=== PATIENT | male | born 2000 | race African-American/Black ===

== ENCOUNTER 2021-01-27 22:23 | Emergency (ER) | payer OTHER ==
[2021-01-27 22:33] VITALS: TEMP 98.1
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
[2021-01-28 01:08] VITALS: BP 133/77; PULSE 76; RESP 16
== END 2021-01-28 01:08 | disposition home or self-care (01) ==
LOC: EC 22:23
DX: S01.112A Laceration without foreign body of left eyelid and periocular area, initial encounter (principal); V89.2XXA Person injured in unspecified motor-vehicle accident, traffic, initial encounter; Y92.410 Unspecified street and highway as the place of occurrence of the external cause
CPT/HCPCS: 12011; 70450; 71046; 72100; 72125; 72170; 93005; 99284